=== PATIENT | female | born 1990 | race Caucasian/White ===

== ENCOUNTER 2020-05-19 18:12 | Emergency (ER) | payer OTHER ==
[~2020-05-19] VITALS: Ht 172.7 cm; Wt 113.6 kg
[2020-05-19 18:24] VITALS: BP 144/95
[2020-05-19] MEDS ORDERED: ORPH-16 PO (18:42)
[2020-05-19] MEDS ORDERED: METH4TAB2 PO (18:42)
--- NOTE | 2020-05-19 18:43 | PHYS DOC ---
Past History Past Medical History: No Pertinent History (EDDI MAKI APRN) Past Surgical History: No Surgical History (EDDI MAKI APRN) Alcohol Use: None (EDDI MAKI APRN) General Adult EDM: Chief Complaint: BACK PAIN OR INJURY HPI: HPI: Patient is a 30-year-old female who presents with lower back pain. Patient st ates that she was getting her son a bath when she went to stand up she started having spasms in her back. Patient states that she had to crawl to the living room and call her mom to come get her to bring her to the emergency room. Patient denies taking anything for pain prior to arrival. Patient was able to ambulate on her own into the emergency room. Patient does have a history of chronic back pain. (EDDI MAKI APRN) Review of Systems: Review of Systems: Constitutional: Denies fever or chills Eyes: Denies change in visual acuity HENT: Denies nasal congestion or sore throat Respiratory: Denies cough or shortness of breath Cardiovascular: Denies chest pain or edema GI: Denies abdominal pain, nausea, vomiting, bloody stools or diarrhea : Denies dysuria Musculoskeletal: Reports back pain denies joint pain Integument: Denies rash Neurologic: Denies headache, focal weakness or sensory changes Endocrine: Denies polyuria or polydipsia Lymphatic: Denies swollen glands Psychiatric: Denies depression or anxiety (EDDI MAKI APRN) Allergies: Allergies: Allergies Coded Allergies Type Severity Reaction Last Updated Verified Penicillins Allergy Unknown 05/19/20 Yes cefdinir Allergy Unknown 05/19/20 Yes (EDDI MAKI APRN) Physical Exam: PE: Constitutional: Well developed, well nourished, no acute distress, non-toxic appearance. [] HENT: Normocephalic, atraumatic, bilateral external ears normal, oropharynx moist, no oral exudates, nose normal. [] Eyes: PERRLA, EOMI, conjunctiva normal, no discharge. [] Neck: Normal range of motion, no tenderness, supple, no stridor. [] Cardiovascular:Heart rate regular rhythm, no murmur [] Lungs & Thorax: Bilateral breath sounds clear to auscultation [] Abdomen: Bowel sounds normal, soft, no tenderness, no masses, no pulsatile masses. [] Skin: Warm, dry, no erythema, no rash. [] Back: Lower back tenderness, no CVA tenderness. [] Extremities: No tenderness, no cyanosis, no clubbing, ROM intact, no edema. [] Neurologic: Alert and oriented X 3, normal motor function, normal sensory function, no focal deficits noted. [] Psychologic: Affect normal, judgement normal, mood normal. [] (EDDI MAKI APRN) Current Patient Data: Vital Signs: Vital Signs Date Time Temp Pulse Resp B/P (MAP) Pulse Ox O2 Delivery O2 Flow Rate FiO2 05/19/20 18:24 98 18 144/95 (111) 100 (EDDI MAKI APRN) EKG: EKG: [] (EDDI MAKI APRN) Radiology/Procedures: Radiology/Procedures: [] (EDDI MAKI APRN) Heart Score: C/O Chest Pain: No Risk Factors: Risk Factors: DM, Current or recent (<one month) smoker, HTN, HLP, family history of CAD, obesity. Risk Scores: Score 0 - 3: 2.5% MACE over next 6 weeks - Discharge Home Score 4 - 6: 20.3% MACE over next 6 weeks - Admit for Clinical Observation Score 7 - 10: 72.7% MACE over next 6 weeks - Early Invasive Strategies (EDDI MAKI APRN) Course & Med Decision Making: Course & Med Decision Making Pertinent Labs and Imaging studies reviewed. (See chart for details) [] Patient is reporting lower back pain and mid back pain. Patient states that she was having spasms and had to crawl from the bathroom to the living room floor. Patient called her mom to bring her to the emergency room. Patient does states she was able to ambulate on her own into the emergency room but was still having pain. Patient given Norflex and Dexamethasone in the ED. Sending patient home with Norflex and Medrol dose pack. (EDDI MAKI APRN) Course & Med Decision Making Did not see or evaluate patient. Agree with PICKLE SORTER's work-up and disposition per note. (LEON SHUKLA MD) Renée Disclaimer: Dragtracy Disclaimer: This electronic medical record was generated, in whole or in part, using a voice recognition dictation system. (EDDI MAKI APRN) Departure Departure: Impression: Primary Impression: Back pain Qualified Codes: M54.5 - Low back pain Disposition: 01 DC HOME SELF CARE/HOMELESS Condition: STABLE Referrals: PCP,NO (PCP) Patient Instructions: Back Pain in Additional Instructions: You are seen in the emergency room for back pain. I am sending you home with a muscle relaxer and also steroids. Please return emergency room with worsening symptoms or concerns. Otherwise follow-up with your PCP for further management. EMERGENCY DEPARTMENT GENERAL DISCHARGE INSTRUCTIONS Thank you for coming to [facility] (ED) today and trusting us with you care. We trust that you had a positivie experience in our Emergency Department. If you wish to speak to the department management, you may call the director at [phone]. YOUR FOLLOW UP INSTRUCTIONS ARE FOLLOWS: 1. Do you have a private Doctor? If you do not have a private doctor, please ask for a resource list of physicians or clinics that may be able to assist you with follow up care. 2. The Emergency Physician has interpreted your x-rays. The X-Ray specialist will also review them. If there is a change in the findings, you will be notified in 48 hours when at all possible. 3. A lab test or culture has been done, your results will be reviewed and you will be notified if you need a change in treatment. ADDITIONAL INSTRUCTIONS AND INFORMATION: 1. Your care today has been supervised by a physician who is specially trained in emergency care. Many problems require more than one evaluation for a complete diagnosis and treatment. We recommend that you schedule your follow up appointment as recommended to ensure complete treatment of you illness or injury. If you are unable to obtain follow up care and continue to have a problem, or if your condition worsens, we recommend that you return to the ED. 2. We are not able to safely determine your condition over the phone nor are we able to give sound medical advice over the phone. For these safety reasons, if you call for medical advice we will ask you to come to the ED for further evaluation. 3. If you have any questions regarding these discharge instructions please call the ED at [phone]. SAFETY INFORMATION: In the interest of safety, wellness, and injury prevention; we encourage you to wear your sealbelt, if you smoke; quite smoking, and we encourage family to use a protective helmet for bicycling and other sporting events that present an increased risk for head injury. IF YOUR SYMPTOMS WORSEN OR NEW SYMPTOMS DEVELOP, OR YOU HAVE CONCERNS ABOUT YOUR CONDITION; OR IF YOUR CONDITION WORSENS WHILE YOU ARE WAITING FOR YOUR FOLLOW UP APPOINTMENT; EITHER CONTACT YOUR PRIMARY CARE DOCTOR, THE PHYSICIAN WHOSE NAME AND NUMBER YOU WERE Eric EATON, OR RETURN TO THE ED IMMEDIATELY. Scripts Orphenadrine Citrate (ORPHENADRINE CITRATE) 100 Mg Tablet.er 1 TAB PO BID for pain for 7 Days, #14 TAB 1 Refill Prov: EDDI MAKI APRN 05/19/20 Methylprednisolone (MEDROL) 4 Mg Tab.ds.pk 1 PKG PO UD for inflammation for 6 Days, #1 PKG 0 Refills Prov: EDDI MAKI APRN 05/19/20 EDDI MAKI APRN May 19, 2020 18:43 LEON SHUKLA MD May 19, 2020 21:42
[2020-05-19] MEDS ORDERED: ORPHENADRINE CITRATE 60 MG/2 ML VIAL. IM ONE (18:45)
[2020-05-19] MEDS ORDERED: DEXAMETHASONE 4 MG TABLET PO ONE (18:45)
== END 2020-05-19 18:59 | disposition home or self-care (01) ==
LOC: ER 18:12
DX: M54.5 Low back pain (principal); M62.830 Muscle spasm of back; G89.29 Other chronic pain; Z88.0 Allergy status to penicillin; Z88.1 Allergy status to other antibiotic agents
CPT/HCPCS: 99283

== ENCOUNTER 2020-07-16 20:11 | Emergency (ER) | payer OTHER ==
[~2020-07-16] VITALS: Ht 172.7 cm; Wt 117.2 kg
[~2020-07-16 20:11] MED LIST: METH4TAB2 PO; ORPH-16 PO
[2020-07-16 20:20] VITALS: BP 137/93
--- NOTE | 2020-07-16 20:32 | PHYS DOC ---
Past History Past Medical History: Anxiety, Depression Past Surgical History: No Surgical History Smoking: Non-smoker Alcohol Use: None Drug Use: None General Adult EDM: Chief Complaint: EARACHE/EAR PAIN HPI: HPI: 30-year-old female presents with report of decreased hearing out of right ear x5 days. Denies any fever or chills. Denies nasal congestion or sore throat. Denies trauma. Patient reports sensation that there is "something in her ear ". Review of Systems: Review of Systems: Constitutional: Denies fever or chills Eyes: Denies redness or eye pain HENT: Denies nasal congestion or sore throat; reports decreased hearing from right ear Respiratory: Denies cough or shortness of breath Cardiovascular: Denies chest pain or palpitations GI: Denies abdominal pain, nausea, or vomiting : Denies dysuria or hematuria Musculoskeletal: Denies back pain or joint pain Integument: Denies rash or skin lesions Neurologic: Denies headache, focal weakness or sensory changes Complete systems were reviewed and found to be within normal limits, except as documented in this note. Allergies: Allergies: Allergies Coded Allergies Type Severity Reaction Last Updated Verified Penicillins Allergy Unknown 05/19/20 Yes cefdinir Allergy Unknown 05/19/20 Yes Physical Exam: PE: Constitutional: Well developed, well nourished, no acute distress, non-toxic appearance HENT: Normocephalic, atraumatic, left TM obscured with wet cerumen, right TM with cerumen impaction noted Eyes: Conjunctiva normal, no discharge Neck: Normal range of motion, supple Lungs & Thorax: No respiratory distress, equal chest rise and fall Skin: Warm, dry, no erythema, no rash Neurologic: Alert and oriented X 3, no focal deficits noted Psychologic: Affect normal, judgment normal EKG: EKG: [] Radiology/Procedures: Radiology/Procedures: [] Heart Score: C/O Chest Pain: N/A Course & Med Decision Making: Course & Med Decision Making Patient presents with HPI and physical exam concern for impacted cerumen of right ear. Ear irrigation with 50-50 mix of hydrogen peroxide and warm water performed with removal of large cerumen plug. Patient reports interval improvement of symptoms. Patient stable for discharge with outpatient follow-up with PCP. Discussed findings and plan with patient, who acknowledges understanding and agreement. Renée Disclaimer: Renée Disclaimer: This electronic medical record was generated, in whole or in part, using a voice recognition dictation system. Additional Procedures Progress Removal of impacted cerumen of right ear Verbal consent obtained. Time out performed. Hand hygiene utilized. Right ear irrigation performed with 60 cc syringe and 18-gauge Angiocath with 50-50 mixture of hydrogen peroxide and warm water. Successful removal of large cer umen plug achieved. TM intact. Patient tolerated procedure well and without difficulty. Departure Departure: Impression: Primary Impression: Impacted cerumen of right ear Disposition: HOME / SELF CARE / HOMELESS Condition: STABLE Referrals: PCP,NO (PCP) Patient Instructions: Cerumen Impaction Additional Instructions: Discontinue use of qtips in your ears. Use over the counter Debrox (ear wax softner) as needed. SANDI OGDEN DO July 16, 2020 20:31
== END 2020-07-16 20:45 | disposition home or self-care (01) ==
LOC: ER 20:11
DX: H61.21 Impacted cerumen, right ear (principal); F41.9 Anxiety disorder, unspecified; F32.9 Major depressive disorder, single episode, unspecified; Z88.0 Allergy status to penicillin; Z88.1 Allergy status to other antibiotic agents
CPT/HCPCS: 69209; 99282

== ENCOUNTER 2020-08-13 20:41 | Emergency (ER) | payer OTHER ==
[~2020-08-13] VITALS: Ht 172.7 cm; Wt 117.2 kg
[2020-08-13 20:45] VITALS: BP 137/93
[2020-08-13] MEDS ORDERED: PRED20TA PO (21:35)
[2020-08-13] MEDS ORDERED: ORPH-16 PO (21:35)
[2020-08-13] MEDS ORDERED: HYDR-2155 PO (21:35)
--- NOTE | 2020-08-13 21:36 | PHYS DOC ---
Past History Past Medical History: Anxiety, Depression Past Surgical History: No Surgical History Smoking: Non-smoker Alcohol Use: None Drug Use: None General Adult EDM: Chief Complaint: UPPER EXTREMITY PAIN HPI: HPI: 30-year-old female presents with report of left arm pain and numbness with radiation from neck to fingertips. Denies known trauma. Reports some swelling to hand. Denies prior injury. Denies . Review of Systems: Review of Systems: Constitutional: Denies fever or chills Eyes: Denies redness or eye pain HENT: Denies nasal congestion or sore throat Respiratory: Denies cough or shortness of breath Cardiovascular: Denies chest pain or palpitations GI: Denies abdominal pain, nausea, or vomiting : Denies dysuria or hematuria Musculoskeletal: Denies back pain; reports neck pain and left arm pain Integument: Denies rash or skin lesions Neurologic: Denies headache, focal weakness; reports numbness and tingling to left arm Complete systems were reviewed and found to be within normal limits, except as documented in this note. Allergies: Allergies: Allergies Coded Allergies Type Severity Reaction Last Updated Verified Penicillins Allergy Unknown 05/19/20 Yes cefdinir Allergy Unknown 05/19/20 Yes Physical Exam: PE: Constitutional: Well developed, well nourished, no acute distress, non-toxic appearance HENT: Normocephalic, atraumatic Eyes: PERRL, EOMI, conjunctiva normal, no discharge Neck: Normal range of motion, no midline tenderness, left paraspinal tenderness noted, supple Lungs & Thorax: No respiratory distress, equal chest rise and fall Skin: Warm, dry, no erythema, no rash Extremities: Left arm tenderness on range of motion, joints appear intact, no significant edema, left radial pulse +2, cap refill less than 2 seconds Neurologic: Alert and oriented X 3, normal motor function, reports decreased sensation to left arm Psychologic: Affect normal, judgment normal EKG: EKG: [] Radiology/Procedures: Radiology/Procedures: [] Heart Score: C/O Chest Pain: N/A Course & Med Decision Making: Course & Med Decision Making Patient presents with HPI and physical exam concerning for cervical radiculopathy. Symptomatic treatment provided. Ice applied. Patient stable for discharge with outpatient follow-up with PCP/pain management. Pain management referral provided. Discussed findings and plan with patient, who acknowledges understanding and agreement. Renée Disclaimer: Renée Disclaimer: This electronic medical record was generated, in whole or in part, using a voice recognition dictation system. Departure Departure: Impression: Primary Impression: Cervical radiculopathy Disposition: HOME / SELF CARE / HOMELESS Condition: STABLE Referrals: PCP,NO (PCP) Patient Instructions: Cervical Radiculopathy, [id number] Additional Instructions: ICE area 20 min on then leave off next 20 mins. Use over the counter Ibuprofen as needed in addition to prescribed medication. Call Dr. Jose Alejandro Mcfadden MD (pain management) for further evaluation and treatment. [address] [address] Scripts Prednisone (PREDNISONE) 20 Mg Tablet 2 TAB PO DAILY for Cervical radiculopathy, #8 TAB Start this prescription tomorrow, Wednesday08/14/20 Prov: SANDI OGDEN DO 08/13/20 Hydrocodone Bit/Acetaminophen (HYDROCODONE-APAP 5-325 ) 1 Each Tablet 0.5-1 TAB PO PRN Q6HRS PRN for PAIN, #14 TAB 0 Refills Prov: SANDI OGDEN DO 08/13/20 Orphenadrine Citrate (ORPHENADRINE CITRATE) 100 Mg Tablet.er 1 TAB PO BID PRN for MUSCLE PAIN, #14 TAB 0 Refills Prov: SANDI OGDNE DO 08/13/20 SANDI OGDEN DO Aug 13, 2020 21:36
[2020-08-13] MEDS ORDERED: DEXAMETHASONE 4 MG TABLET PO ONE (22:00)
[2020-08-13] MEDS ORDERED: HYDROcodone/APAP 5/325MG 1 TAB TABLET PO ONE (22:00)
[2020-08-13] MEDS ORDERED: ORPHENADRINE CITRATE 60 MG/2 ML VIAL. IM ONE (22:00)
[2020-08-13] MEDS ORDERED: KETOROLAC 30 MG/ML VIAL. IM ONE (22:00)
== END 2020-08-13 22:15 | disposition home or self-care (01) ==
LOC: ER 20:41
DX: M54.12 Radiculopathy, cervical region (principal); F41.9 Anxiety disorder, unspecified; F32.9 Major depressive disorder, single episode, unspecified; Z88.0 Allergy status to penicillin; Z88.1 Allergy status to other antibiotic agents
CPT/HCPCS: 96372; 99284; J1885; J2360; J8540

== ENCOUNTER 2020-11-08 10:28 | Emergency (ER) | payer OTHER ==
[~2020-11-08] VITALS: Ht 172.7 cm; Wt 116.6 kg
[~2020-11-08 10:28] MED LIST changes: +HYDR-2155 PO; +PRED20TA PO
[2020-11-08 10:35] VITALS: BP 144/91
--- NOTE | 2020-11-08 10:49 | PHYS DOC ---
Past History Past Medical History: Anxiety, Depression Past Surgical History: No Surgical History Smoking: Non-smoker Alcohol Use: None Drug Use: None General Adult EDM: Chief Complaint: SHOULDER INJURY HPI: HPI: Patient is a 30 year old female who presents with left shoulder pain. Started 1-2 hours ago. Works at [employer] and was moving 20 pound bags of ice when it started to happen. Pain is in the left trapezius area and radiates towards the shoulder and up towards the neck. Does complain of some tingling in her bilateral hands. No weakness, but does have increasing pain with abduction of the left shoulder. No known trauma. No repetitive motions or overhead motions. Denies having any previous problems with the shoulder. Denies having neck pain/problems. Review of Systems: Review of Systems: Constitutional: Denies fever or chills Eyes: Denies change in visual acuity HENT: Denies nasal congestion or sore throat Respiratory: Denies cough or shortness of breath Cardiovascular: Denies chest pain or edema GI: Denies abdominal pain, nausea, vomiting, bloody stools or diarrhea : Denies dysuria Musculoskeletal: left shoulder pain Integument: Denies rash Neurologic: Denies headache, focal weakness or sensory changes Endocrine: Denies polyuria or polydipsia Lymphatic: Denies swollen glands Psychiatric: Denies depression or anxiety Allergies: Allergies: Allergies Coded Allergies Type Severity Reaction Last Updated Verified Penicillins Allergy Unknown 05/19/20 Yes cefdinir Allergy Unknown 05/19/20 Yes Physical Exam: PE: Constitutional: Well developed, well nourished, no acute distress, non-toxic appearance. [] HENT: Normocephalic, atraumatic, bilateral external ears normal, oropharynx moist, no oral exudates, nose normal. [] Eyes: PERRLA, EOMI, conjunctiva normal, no discharge. [] Neck: Normal range of motion, no tenderness, supple, no stridor. [] Cardiovascular:Heart rate regular rhythm, no murmur [] Lungs & Thorax: Bilateral breath sounds clear to auscultation [] Abdomen: Bowel sounds normal, soft, no tenderness, no masses, no pulsatile masses. [] Skin: Warm, dry, no erythema, no rash. [] Back: No tenderness, no CVA tenderness. [] Extremities: Tenderness over the left trapezius and deltoid. Mild bony tenderness over the distal clavicle and proximal humerus.. [] Neurologic: Alert and oriented X 3, normal motor function, normal sensory function, no focal deficits noted. Specifically 5/5 strength bilaterally: Plasticator strength Flexion/extension at the elbow Initiation of abduction Good strength with full abduction, but complains of pain at approximately 30 degrees 5/5 strength on the left in: Internal and external rotation of the shoulder [] Psychologic: Affect normal, judgement normal, mood normal. [] EKG: EKG: [] Radiology/Procedures: Radiology/Procedures: [] Impressions: [place] [address] IMAGING REPORT Signed PATIENT: BABS GRANDA ACCOUNT: [id number] : 1990 LOCATION: ER AGE: 30 SEX: F EXAM STATUS: PRE ER ORD. PHYSICIAN: CHRISTINE VIGIL MD REASON: shoulder pain, atraumatic PROCEDURE: SHOULDER 2+V LEFT AP Internal and external rotation views with Y-View of the left shoulder were performed. Indication: Pain after trauma Comparison: None. No fracture, glenohumeral or AC joint subluxation, or significant degenerative changes are seen. The subacromial space is maintained. Impression: 1. Unremarkable exam of the left shoulder. Electronically signed by: Reji Wood MD (11/08/2020 10:53 AM) [id number] DICTATED AND SIGNED BY: REJI WOOD MD DATE: 11/08/20 1053 CC: CHRISTINE VIGIL MD; PCP,NO ~MTH0 0 Heart Score: C/O Chest Pain: No Risk Factors: Risk Factors: DM, Current or recent (<one month) smoker, HTN, HLP, family history of CAD, obesity. Risk Scores: Score 0 - 3: 2.5% MACE over next 6 weeks - Discharge Home Score 4 - 6: 20.3% MACE over next 6 weeks - Admit for Clinical Observation Score 7 - 10: 72.7% MACE over next 6 weeks - Early Invasive Strategies Course & Med Decision Making: Course & Med Decision Making Pertinent Labs and Imaging studies reviewed. (See chart for details) Patient a 30-year-old female presents with nontraumatic left shoulder pain after moving 20 pound ice bags. Exam most consistent with trapezius strain versus potentially cervical radiculopathy. Strength intact, does not require neuroimaging of the neck emergently. We will obtain a plain film of the shoulder to exclude bony process. Rotator cuff intact by exam. No overlying changes to suggest septic joint. We will plan on conservative treatment with cyclobenzaprine, Tylenol, NSAID. 1048 Renée Disclaimer: Renée Disclaimer: This electronic medical record was generated, in whole or in part, using a voice recognition dictation system. Departure Departure: Impression: Primary Impression: Left shoulder pain Disposition: HOME / SELF CARE / HOMELESS Condition: STABLE Referrals: PCP,NO (PCP) Additional Instructions: Since you do not have a PCP, please call the number for the [facility] at [phone]. For pain tylenol and ibuprofen are best used on a schedule. Please alternate between the two. -Tylenol 1000 mg every 6 hours (do not exceed 4000 mg in one day) -Ibuprofen 400-600 mg every 6 hours. Take with food. Do not take for more than 1 week. You can also take cyclobenzaprine 10 mg every 8 hours as needed for muscle strain/pain. If you develop high fevers, shaking chills, weakness, or other new/concerning symptoms please return to the emergency department for reevaluation. CHRISTINE VIGIL MD Nov 08, 2020 10:49
--- NOTE | 2020-11-08 10:56 | RAD ---
AP Internal and external rotation views with Y-View of the left shoulder were performed. Indication: Pain after trauma Comparison: None. No fracture, glenohumeral or AC joint subluxation, or significant degenerative changes are seen. The subacromial space is maintained. Impression: 1. Unremarkable exam of the left shoulder. Electronically signed by: Reji Maguire MD (11/08/2020 10:53 AM) [id number]
[2020-11-08] MEDS ORDERED: CYCL-331 PO (11:41)
== END 2020-11-08 11:45 | disposition home or self-care (01) ==
LOC: ER 10:28
DX: M25.512 Pain in left shoulder (principal); Z88.0 Allergy status to penicillin; Z88.8 Allergy status to other drugs, medicaments and biological substances; Z59.0 Homelessness
CPT/HCPCS: 73030; 99283

== ENCOUNTER 2020-12-10 20:34 | Emergency (ER) | payer OTHER ==
[~2020-12-10] VITALS: Ht 172.7 cm; Wt 100.0 kg
[~2020-12-10 20:34] MED LIST changes: +CYCL-331 PO
[2020-12-10 20:38] VITALS: BP 122/76
--- NOTE | 2020-12-10 20:50 | PHYS DOC ---
Past History Past Medical History: Anxiety, Depression Additional Past Medical Histor: chronic back pain (NABIL SENIOR APRN) Past Surgical History: Other Additional Past Surgical Histo: wisdom teeth removal (NABIL SENIOR APRN) Smoking: Non-smoker Alcohol Use: Rarely Drug Use: None (NABIL SENIOR APRN) General Adult EDM: Chief Complaint: FINGER INJURY HPI: HPI: Patient is a 30-year-old female who presents to the emergency department for right fifth finger injury. Patient reports that 4 days ago she was moving a cabinet and smashed her finger between the cabinet and the wall. She rates her pain currently 3 out of 10. No treatment prior to arrival. Patient denies any decreased sensation to her extremity but does report limited flexion due to pain and swelling. (NABIL SENIOR APRN) Review of Systems: Review of Systems: Musculoskeletal: See HPI Integument: See HPI Neurologic: See HPI (NABIL SENIOR APRN) Allergies: Allergies: Allergies Coded Allergies Type Severity Reaction Last Updated Verified Penicillins Allergy Unknown 11/08/20 Yes cefdinir Allergy Unknown 11/08/20 Yes (NABIL SENIOR APRN) Physical Exam: PE: Constitutional: Well developed, well nourished, no acute distress, non-toxic appearance. [] HENT: Normocephalic, atraumatic Eyes: PERRL, EOMI, conjunctiva normal, no discharge. [] Neck: Normal range of motion, no stridor Cardiovascular: Normal peripheral perfusion Lungs & Thorax: Normal work of breathing, no tachypnea Abdomen: Bowel sounds normal, soft, no tenderness, no masses, no pulsatile masses. [] Skin: Warm, dry, no erythema, no rash. [] Back: Normal range of motion Extremities: No tenderness, no cyanosis, no clubbing, ROM intact, no edema. Right fifth finger: Swelling and ecchymosis noted to right fifth finger, limited flexion due to pain and swelling, extension intact, neuro intact Neurologic: Alert and oriented X 3, normal motor function, normal sensory function, no focal deficits noted. [] Psychologic: Affect normal, judgement normal, mood normal. [] (NABIL SENIOR APRN) Current Patient Data: Vital Signs: Vital Signs Date Time Temp Pulse Resp B/P (MAP) Pulse Ox O2 Delivery O2 Flow Rate FiO2 12/10/20 20:38 98.6 74 20 122/76 (91) 99 Room Air (NABIL SENIOR APRN) EKG: EKG: [] (NABIL SENIOR APRN) Radiology/Procedures: Radiology/Procedures: []PROCEDURE: FINGER(S) RIGHT EXAM: 3 views right small finger DATE: 12/10/2020 9:00 PM INDICATION: Reason: 5TH DIGIT RIGHT HAND, SHIELD ABDOMEN PLEASE / Spl. Instructions: / History: . COMPARISON: No Prior FINDINGS/ IMPRESSION: No evidence of acute fracture or dislocation. Soft tissue swelling about the rig ht small finger. Joint spaces are preserved without significant degenerative/proliferative change. Electronically signed by: Ton Flanagan MD (12/10/2020 9:05 PM) [facility] DICTATED AND SIGNED BY: TON FLANAGAN MD DATE: 12/10/202104 CC: EMERGENCY,DEPARTMENT; NABIL SENIOR APRN; PCP,NO ~MTH0 0 (NABIL SENIOR APRN) Heart Score: C/O Chest Pain: N/A Risk Factors: Risk Factors: DM, Current or recent (<one month) smoker, HTN, HLP, family history of CAD, obesity. Risk Scores: Score 0 - 3: 2.5% MACE over next 6 weeks - Discharge Home Score 4 - 6: 20.3% MACE over next 6 weeks - Admit for Clinical Observation Score 7 - 10: 72.7% MACE over next 6 weeks - Early Invasive Strategies (NABIL SENIOR APRN) Course & Med Decision Making: Course & Med Decision Making Pertinent Labs and Imaging studies reviewed. (See chart for details) Patient presents to the emergency department for right fifth finger injury after smashing it 4 days ago between a cabinet normal. No nail bed involvement. An x-ray was performed that showed no acute findings. Aluminum finger splint placed. Patient advised to wear that for comfort. She was also advised to take Tylenol and ibuprofen for pain. She can also apply ice. Follow-up with primary care provider within a week. I discussed with patient all findings and diagnostic testing as well as the need to follow-up with PCP for further evaluation and treatment or return to the ER if any new or worsening symptoms. Strict return precautions were also discussed at length. Patient voiced understanding and agreement with the plan. Patient is hemodynamically stable at the time of disposition. (NABIL SENIOR APRN) Dragon Disclaimer: Dragon Disclaimer: This electronic medical record was generated, in whole or in part, using a voice recognition dictation system. (NABIL SENIOR APRN) Attending Co-Sign The patient was seen and interviewed as well as examined at the bedside. The chart was reviewed. The case was discussed. Agree with the plan of care. (RUBEN FAJARDO DO) Departure Departure: Impression: Primary Impression: Finger contusion Qualified Codes: S60.051A - Contusion of right little finger without damage to nail, initial encounter Disposition: HOME / SELF CARE / HOMELESS Condition: GOOD Referrals: PCP,NO (PCP) Patient Instructions: Contusion Additional Instructions: You are seen in the emergency department today for finger injury. An x-ray was performed that showed no acute fracture. Your finger was placed in aluminum finger splint to help with pain. You can take Tylenol and/or ibuprofen for pain at home. Application of ice may help with swelling. Follow-up with your primary care provider within the week if your pain persists. If you develop new injury or develop worsening of your pain, decreased range of motion, decreased sensation or increased swelling please return to the ER. EMERGENCY DEPARTMENT GENERAL DISCHARGE INSTRUCTIONS Thank you for coming to [facility] (ED) today and trusting us with you care. We trust that you had a positivie experience in our Emergency Department. If you wish to speak to the department management, you may call the director at [phone]. YOUR FOLLOW UP INSTRUCTIONS ARE FOLLOWS: 1. Do you have a private Doctor? If you do not have a private doctor, please ask for a resource list of physicians or clinics that may be able to assist you with follow up care. 2. The Emergency Physician has interpreted your x-rays. The X-Ray specialist will also review them. If there is a change in the findings, you will be notified in 48 hours when at all possible. 3. A lab test or culture has been done, your results will be reviewed and you will be notified if you need a change in treatment. ADDITIONAL INSTRUCTIONS AND INFORMATION: 1. Your care today has been supervised by a physician who is specially trained in emergency care. Many problems require more than one evaluation for a complete diagnosis and treatment. We recommend that you schedule your follow up appointment as recommended to ensure complete treatment of you illness or injury. If you are unable to obtain follow up care and continue to have a problem, or if your condition worsens, we recommend that you return to the ED. 2. We are not able to safely determine your condition over the phone nor are we able to give sound medical advice over the phone. For these safety reasons, if you call for medical advice we will ask you to come to the ED for further evaluation. 3. If you have any questions regarding these discharge instructions please call the ED at [phone]. SAFETY INFORMATION: In the interest of safety, wellness, and injury prevention; we encourage you to wear your sealbelt, if you smoke; quite smoking, and we encourage family to use a protective helmet for bicycling and other sporting events that present an increased risk for head injury. IF YOUR SYMPTOMS WORSEN OR NEW SYMPTOMS DEVELOP, OR YOU HAVE CONCERNS ABOUT YOUR CONDITION; OR IF YOUR CONDITION WORSENS WHILE YOU ARE WAITING FOR YOUR FOLLOW UP APPOINTMENT; EITHER CONTACT YOUR PRIMARY CARE DOCTOR, THE PHYSICIAN WHOSE NAME AND NUMBER YOU WERE GIVEN, OR RETURN TO THE ED IMMEDIATELY. NABIL SENIOR APRN Dec 10, 2020 20:50 RUBEN FAJARDO DO Dec 12, 2020 14:16
--- NOTE | 2020-12-10 21:08 | RAD ---
EXAM: 3 views right small finger DATE: 12/10/2020 9:00 PM INDICATION: Reason: 5TH DIGIT RIGHT HAND, SHIELD ABDOMEN PLEASE / Spl. Instructions: / History: . COMPARISON: No Prior FINDINGS/ IMPRESSION: No evidence of acute fracture or dislocation. Soft tissue swelling about the right small finger. Joint spaces are preserved without significant degenerative/proliferative change. Electronically signed by: Ton Flanagan MD (12/10/2020 9:05 PM) [facility]
== END 2020-12-10 22:00 | disposition home or self-care (01) ==
LOC: ER 20:34
DX: S60.051A Contusion of right little finger without damage to nail, initial encounter (principal); Z88.0 Allergy status to penicillin; W20.8XXA Other cause of strike by thrown, projected or falling object, initial encounter; Y93.89 Activity, other specified; Y92.89 Other specified places as the place of occurrence of the external cause; Y99.8 Other external cause status
CPT/HCPCS: 29130; 73140; 99283-25

== ENCOUNTER 2021-01-03 09:17 | Emergency (ER) | payer OTHER ==
[~2021-01-03] VITALS: Ht 172.7 cm; Wt 112.0 kg
[~2021-01-03 09:17] MED LIST changes: -CYCL-331 PO; +CYCL10TA19 PO
--- NOTE | 2021-01-03 09:50 | PHYS DOC ---
Past History Past Medical History: Anxiety, Depression Additional Past Medical Histor: chronic back pain Past Surgical History: Other Additional Past Surgical Histo: wisdom teeth removal Smoking: Non-smoker Alcohol Use: Rarely Drug Use: None General Adult EDM: Chief Complaint: CHEST PAIN HPI: HPI: 30-year-old female presents with chest pain. 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 It was a 7 out of 10 at that time. She felt like she needed to sit down and she never sits down to work. She had a general feeling of fatigue and shortness of breath. This made her concerned and she decided to come to the emergency room. Patient has depression and generalized anxiety at baseline. She has family history of cardiac problems. Patient has been diagnosed with high blood pressure but is not on medication. Her chest pain is currently a 2. She denies fever or chills. She was feeling well prior to this episode. Review of Systems: Review of Systems: Constitutional: Denies fever or chills Eyes: Denies change in visual acuity HENT: Denies nasal congestion or sore throat Respiratory: shortness of breath Cardiovascular: Chest pain GI: Denies abdominal pain, nausea, vomiting, bloody stools or diarrhea : Denies dysuria Musculoskeletal: Denies back pain or joint pain Integument: Denies rash Neurologic: Denies headache, focal weakness or sensory changes Endocrine: Denies polyuria or polydipsia Lymphatic: Denies swollen glands Psychiatric: anxiety Allergies: Allergies: Allergies Coded Allergies Type Severity Reaction Last Updated Verified Penicillins Allergy Unknown 11/08/20 Yes cefdinir Allergy Unknown 11/08/20 Yes Physical Exam: PE: Constitutional: Well developed, well nourished, obese, no acute distress, non- toxic appearance. [] HENT: Normocephalic, atraumatic, bilateral external ears normal, oropharynx moist, no oral exudates, nose normal. [] Eyes: PERRLA, EOMI, conjunctiva normal, no discharge. [] Neck: Normal range of motion, no tenderness, supple, no stridor. [] Cardiovascular: Heart rate regular rhythm, no murmur [] Lungs & Thorax: Bilateral breath sounds clear to auscultation [] Abdomen: Bowel sounds normal, soft, no tenderness, no masses, no pulsatile masses. [] Skin: Warm, dry, no erythema, no rash. [] Back: No tenderness, no CVA tenderness. [] Extremities: No tenderness, no cyanosis, no clubbing, ROM intact, no edema. [] Neurologic: Alert and oriented X 3, normal motor function, normal sensory function, no focal deficits noted. [] Psychologic: Affect normal, judgement normal, mood anxious. [] EKG: EKG: Sinus rhythm, rate 87, normal axis, no ST elevation or depression. [] Radiology/Procedures: Radiology/Procedures: [] Heart Score: C/O Chest Pain: Yes HEART Score for Chest Pain: HEART Score for Chest Pain Response (Comments) Value History Slighlty/Non-Suspicious 0 ECG Normal 0 Age < 45 0 Risk Factors 1 or 2 Risk Factors 1 Troponin < Normal Limit 0 Total 1 Risk Factors: Risk Factors: DM, Current or recent (<one month) smoker, HTN, HLP, family history of CAD, obesity. Risk Scores: Score 0 - 3: 2.5% MACE over next 6 weeks - Discharge Home Score 4 - 6: 20.3% MACE over next 6 weeks - Admit for Clinical Observation Score 7 - 10: 72.7% MACE over next 6 weeks - Early Invasive Strategies Course & Med Decision Making: Course & Med Decision Making Pertinent Labs and Imaging studies reviewed. (See chart for details) The patient's labs are unremarkable. Her EKG is unremarkable. Her troponin is negative. Her chest x-ray is negative for acute findings. Her heart score is a 1. I am not sure exactly what happened with the patient's work, but it was likely made worse by her baseline anxiety. I have advised she follow-up with her primary care physician if she continues to have episodes. If she has worsening symptoms or new symptoms she is welcome to return the emergency room. She is stable for discharge at this time. [] Dragon Disclaimer: Renée Disclaimer: This electronic medical record was generated, in whole or in part, using a voice recognition dictation system. Departure Departure: Impression: Primary Impression: Chest pain Qualified Codes: R07.9 - Chest pain, unspecified Disposition: HOME / SELF CARE / HOMELESS Condition: STABLE Referrals: PCP,NO (PCP) Patient Instructions: Chest Pain (Nonspecific), [id number] RUBEN FAJARDO DO Jan 03, 2021 09:50
[2021-01-03 09:53] LABS: BASO # 0.1 x10^3/uL (0.0-0.2); BASO % 1 % (0-3); EOS # 0.2 x10^3/uL (0.0-0.7); EOS % 2 % (0-3); HEMATOCRIT 38.3 % (36.0-47.0); HEMOGLOBIN 12.9 g/dL (12.0-15.5); LYMPH # 2.1 x10^3/uL (1.0-4.8); LYMPH % 23 % (24-48); MEAN CORPUSCULAR HEMOGLOBIN 27 pg (25-35); MEAN CORPUSCULAR HGB CONC 34 g/dL (31-37); MEAN CORPUSCULAR VOLUME 79 fL (79-100); MONO # 0.6 x10^3/uL (0.0-1.1); MONO % 7 % (0-9); NEUT # 6.1 x10^3uL (1.8-7.7); NEUT % 67 % (31-73); PLATELET COUNT 353 x10^3/uL (140-400); RED BLOOD COUNT 4.86 x10^6/uL (3.50-5.40); RED CELL DISTRIBUTION WIDTH 14.3 % (11.5-14.5)
[2021-01-03 09:57] LABS: CALCIUM 9.8 mg/dL (8.5-10.1); GFR 65.1
[2021-01-03 10:03] LABS: ALBUMIN/GLOBULIN RATIO 1.1 (1.0-1.7); TOTAL BILIRUBIN 0.4 mg/dL (0.2-1.0); TOTAL PROTEIN 7.6 g/dL (6.4-8.2)
--- NOTE | 2021-01-03 10:18 | RAD ---
Single view of the chest. 01/03/2021 9:43 AM Indication: Reason: CHEST PAIN / Spl. Instructions: / History: Comparison: None Findings: There is no focal consolidation. There is no pleural effusion or pneumothorax. The cardiome diastinal silhouette and pulmonary vasculature are within normal limits. No acute osseous abnormaliti es are seen. Impression: No evidence of acute cardiopulmonary process. Electronically signed by: Aleksey Villa MD (01/03/2021 10:15 AM) [id number]
[2021-01-03 10:36] LABS: AMPHETAMINE/METHAMPHETAMINE NEG (NEG); BARBITURATES NEG (NEG); BENZODIAZEPINES NEG (NEG); CANNABINOIDS NEG (NEG); COCAINE NEG (NEG); METHADONE NEG (NEG); OPIATES NEG (NEG); PHENCYCLIDINE NEG (NEG)
[2021-01-03 10:41] LABS: CLARITY,URINE HAZY; COLOR,URINE YELLOW
[2021-01-03 10:42] LABS: AMORPHOUS SEDIMENT,UR PRESENT /HPF; BACTERIA,URINE FEW /HPF (0-FEW); BILIRUBIN,URINE NEG (NEG); GLUCOSE,URINE NEG (NEG); NITRITE,URINE NEG (NEG); RBC,URINE 0 /HPF (0-2); SQUAMOUS EPITHELIAL CELL,UR MOD /LPF
[2021-01-03 11:00] VITALS: BP 130/73
--- NOTE | 2021-01-03 11:53 | EKG ---
[address] [address] Test Date: 2021-01-03 Test Time: 09:26:49 Pat Name: BABS GRANDA Department: Room: Gender: F Digital Strategist Senior Manager: : 1990 Requested By: RUBEN FAJARDO Order Number: [id number] Reading MD: Jose Castaneda MD Measurements Intervals Mclean Rate: 87 P: 28 SC: 136 QRS: 51 QRSD: 92 T: 18 QT: 360 QTc: 434 Interpretive Statements SINUS RHYTHM Electronically Signed On 01-03-2021 13:22:18 [employer]AR [employer]OT WORKER by Jose Castaneda MD
== END 2021-01-03 11:15 | disposition home or self-care (01) ==
LOC: ER 09:17
DX: R07.89 Other chest pain (principal); Z88.0 Allergy status to penicillin
CPT/HCPCS: 36415; 71045; 80053; 80307; 81001; 81025; 84484; 85025; 87086; 93005; 99285-25